=== PATIENT | male | born 1960 | race Caucasian/White ===

== ENCOUNTER 2021-04-17 18:53 | Inpatient (IN) ==
[2021-04-18] MEDS ORDERED: *HR* LORazepam 2 MG/ML VIAL IVP ONE (01:06)
[2021-04-18] MEDS ORDERED: Naloxone 0.4 MG/ML INJ IVP PRN (01:16)
[2021-04-18] MEDS ORDERED: Ondansetron 4 MG/2 ML VIAL IVP PRN (01:16)
[2021-04-18 02:11] LABS: Hematocrit 23.2 % (37.5-50.1); Hemoglobin 7.9 g/dL (12.9-16.9); Mean Corpuscular HGB Conc 34.1 g/dL (31.6-35.5); Mean Corpuscular Hemoglobin 33.6 pg (28.0-33.3); Mean Corpuscular Volume 98.7 fL (83.0-100.0); Platelet Count 110 K/mcL (140-400); Red Blood Count 2.35 M/mcL (4.19-5.50); White Blood Count 28.1 K/mcL (4.3-11.1)
[2021-04-18] MEDS ORDERED: Dexmedetomidine HCl 400 MCG/100 ML MLS IVC SCH (02:15)
[2021-04-18 02:27] LABS: Alanine Aminotransferase 19 Units/L (7-52); Albumin 2.1 g/dL (3.5-5.7); Albumin/Globulin Ratio 0.5 (1.1-2.2); Alkaline Phosphatase 103 Units/L (34-104); Aspartate Amino Transferase 74 Units/L (13-39); BUN/Creatinine Ratio 13 (6-26); Bilirubin,Total 4.9 mg/dL (0.3-1.0); Blood Urea Nitrogen 19 mg/dL (8-23); Calcium 7.7 mg/dL (8.6-10.3); Carbon Dioxide 17 mEq/L (23-29); Chloride 108 mEq/L (98-107); Globulin 4.5 g/dL (2.4-3.5); Glucose 64 mg/dL (70-105); Lipase 12 Units/L (11-82); Magnesium 1.3 mg/dL (1.6-2.6); Osmolality,Calculated 288 (280-300); Potassium 4.2 mEq/L (3.5-5.1); Sodium 139 mEq/L (136-145); Total Protein 6.6 g/dL (6.4-8.9); eGFR For African Americans > 60 (> 60); eGFR For Non-African Americans 51 (> 60)
[2021-04-18] MEDS ORDERED: D5% in Water 1,000 ML IVC PRN (02:33)
[2021-04-18] MEDS ORDERED: Dextrose Gel 15 GM/37.5 ML TUBE PO PRN ×2 (02:33)
[2021-04-18] MEDS ORDERED: *HR* Dextrose 50 % in Water (Vial) 50 ML VIAL IVP PRN (02:33)
[2021-04-18 02:34] LABS: Lymphocytes # 2.3 K/mcL (0.6-4.6); Monocytes # 0.6 K/mcL (0.0-1.3); Neutrophils # 24.2 K/mcL (1.6-8.9); Platelet Estimate Slight Decrease (Normal)
[2021-04-18] MEDS ORDERED: 0.9 % Sodium Chloride 1,000 ML IVC SCH (03:15)
[2021-04-18 03:36] LABS: INR 2.4; Prothrombin Time 27.2 Seconds (9.4-12.1)
[2021-04-18] MEDS: 0.9 % Sodium Chloride 500 ML IVC ONE ×2 (03:41→05:38)
[2021-04-18] MEDS ORDERED: *HR* LORazepam 2 MG/ML VIAL IVP PRN ×2 (03:51)
[2021-04-18] MEDS ORDERED: Lactulose 200 GM, Sodium Chloride IRRigation 700 ML RC ONE ×2 (04:02→18:00)
[2021-04-18] MEDS ORDERED: 0.9 % Sodium Chloride 500 ML ONE (05:25)
[2021-04-18] MEDS: Albumin 25% 25gram/100mL 25 GM/100 ML IV.SOLN IVPB SCH ×3 (05:40→21:39)
[2021-04-18] MEDS ORDERED: Vancomycin 1,250 MG/262.5 ML IV.SOLN IVPB SCH (06:00)
[2021-04-18 07:34] LABS: % Iron Saturation 24 % (20-55); Ethanol < 10 mg/dL (Less than 10); Iron 30 mcg/dL (65-175); Transferrin 91 mg/dL (203-362)
[2021-04-18] MEDS: Piperacillin/Tazobactam 3.375 GM in 0.9 % Sodium Chloride Mini Bag 100 ML IVPB SCH ×2 (07:34→17:24)
[2021-04-18 07:50] LABS: Ferritin 414 ng/mL (20-250)
[2021-04-18 07:55] LABS: Folate 9.8 ng/mL (3.0-16.0)
[2021-04-18] MEDS: Ipratropium/Albuterol Neb 3 ML IH SCH ×5 (08:04→23:58)
[2021-04-18] MEDS: *HR* LORazepam 2 MG/ML VIAL IVP PRN ×2 (08:38→22:15)
[2021-04-18] MEDS ORDERED: Ringers Solution, Lactated 500 ML IVC ONE ×2 (08:48→09:55)
[2021-04-18 09:05] LABS: Amorphous Sediment,Urine Few per hpf (None-Few); Bacteria,Urine Few per hpf (None-Few); Bilirubin,Urine Negative (Negative); Blood,Urine Large (Negative); Clarity,Urine Ex.Turbid (Clear); Color,Urine Orange (Yellow); Glucose,Urine (UA) 200 mg/dL (Normal); Hyaline Casts,Urine Moderate per lpf (None Seen); Ketones,Urine Negative (Negative); Leukocyte Esterase,Urine Large (Negative); Mucus,Urine Few per lpf (None-Few); Nitrite,Urine Negative (Negative); PH,Urine 5.5 pH Units (5.0-8.0); Protein,Urine 50 mg/dL (Neg-Trace); RBC,Urine TNTC per hpf (0-3); Specific Gravity,Urine 1.021 (1.010-1.025); Squamous Epithelial Cell,Urine Few per hpf (None-Few); Urobilinogen,Urine Normal (Normal); WBC,Urine 50-100 per hpf (0-3)
[2021-04-18] MEDS ORDERED: Ringers Solution, Lactated 1,000 ML IVC ONE ×3 (09:48→11:34)
[2021-04-18 09:50] LABS: Amphetamine Screen,Urine Negative ng/mL (Cutoff=1000); Barbiturate Screen,Urine Negative ng/mL (Cutoff=200); Benzodiazepines Screen,Urine Negative ng/mL (Cutoff=200); Cannabinoid Screen,Urine Negative ng/mL (Cutoff = 50); Cocaine Screen,Urine Negative ng/mL (Cutoff= 300); Opiate Screen,Urine Negative ng/mL (Cutoff=300); Phencyclidine Screen,Urine Negative ng/mL (Cutoff=25)
[2021-04-18 11:45] LABS: Adenovirus Not Detected (Not Detect); Coronavirus 229E Not Detected (Not Detect); Coronavirus HKU1 Not Detected (Not Detect); Coronavirus NL63 Not Detected (Not Detect); Coronavirus OC43 Not Detected (Not Detect)
[2021-04-18 11:46] LABS: Bordetella Pertussis Not Detected (Not Detect); Chlamydophila pneumoniae Not Detected (Not Detect); Human Metapneumovirus Not Detected (Not Detect); Human Rhinovirus/Enterovirus Not Detected (Not Detect); Influenza A Subtype 2009 H1 Not Detected (Not Detect); Influenza B Not Detected (Not Detect); Mycoplasma pneumoniae Not Detected (Not Detect); Parainfluenza Virus 1 Not Detected (Not Detect); Parainfluenza Virus 2 Not Detected (Not Detect); Parainfluenza Virus 3 Not Detected (Not Detect); Parainfluenza Virus 4 Not Detected (Not Detect); Respiratory Syncytial Virus Not Detected (Not Detect); SARS-CoV-2 Not Detected (Not Detect)
[2021-04-18] MEDS ORDERED: Haloperidol Lactate 5 MG/ML VIAL IVP ONE ×2 (14:42→17:22)
[2021-04-18] MEDS: Insulin LISPRO 300 UNITS/3 ML VIAL SUBQ SCH ×3 (15:02→23:42)
[2021-04-18 15:54] LABS: Sodium, Urine 24.9 mEq/L
[2021-04-18] MEDS ORDERED: Thiamine (B-1) 100 MG, Folic Acid 1 MG, MVI, adult with vitamin K 10 ML in 0.9 % Sodi... IVPB SCH (18:00)
[2021-04-18 18:58] LABS: RBC,Peritoneal Fluid < 2000 RBC/mcL
[2021-04-18 19:38] LABS: Appearance of Peritoneal Fl CLEAR (Clear)
[2021-04-18 19:58] LABS: Basophils,Peritoneal Fluid 0 %; Eosinophils,Peritoneal Fluid 0 %
[2021-04-19] MEDS: Piperacillin/Tazobactam 3.375 GM in 0.9 % Sodium Chloride Mini Bag 100 ML IVPB SCH ×2 (00:10→16:47)
[2021-04-19] MEDS: *HR* LORazepam 2 MG/ML VIAL IVP PRN (02:15)
[2021-04-19] MEDS: Ipratropium/Albuterol Neb 3 ML IH SCH ×6 (04:23→23:24)
[2021-04-19] MEDS ORDERED: *HR* Etomidate 20 MG/10 ML AMPUL IVP ONE (04:54)
[2021-04-19] MEDS ORDERED: *HR* Midazolam HCl 5 MG/5 ML VIAL IVP ONE (04:54)
[2021-04-19 06:00] LABS: Hemoglobin 7.3 g/dL (12.9-16.9); Mean Corpuscular Hemoglobin 32.4 pg (28.0-33.3); Red Blood Count 2.25 M/mcL (4.19-5.50); Red Cell Distribution Width 13.2 % (11.5-14.5)
[2021-04-19 06:01] LABS: Hematocrit 22.9 % (37.5-50.1); Immature Platelets 1.6 % (1.1-6.1); Mean Corpuscular HGB Conc 31.9 g/dL (31.6-35.5); Mean Corpuscular Volume 101.8 fL (83.0-100.0); Mean Platelet Volume 8.9 fL (9.4-12.4); White Blood Count 16.9 K/mcL (4.3-11.1)
[2021-04-19] MEDS: Albumin 25% 25gram/100mL 25 GM/100 ML IV.SOLN IVPB SCH ×3 (06:01→23:52)
[2021-04-19 06:07] LABS: INR 2.6
[2021-04-19] MEDS: Insulin LISPRO 300 UNITS/3 ML VIAL SUBQ SCH ×3 (06:16→18:10)
[2021-04-19 06:20] LABS: Albumin 2.6 g/dL (3.5-5.7); Albumin/Globulin Ratio 0.7 (1.1-2.2); Bilirubin,Total 4.9 mg/dL (0.3-1.0); Calcium 8.2 mg/dL (8.6-10.3); Globulin 3.6 g/dL (2.4-3.5); Magnesium 1.7 mg/dL (1.6-2.6); Potassium 3.7 mEq/L (3.5-5.1); Total Protein 6.2 g/dL (6.4-8.9)
[2021-04-19] MEDS ORDERED: Furosemide 40 MG/4 ML VIAL ONE ×2 (07:36→08:38)
[2021-04-19] MEDS ORDERED: Perflutren Lipid Microsphere 1.3 ML in 0.9 % Sodium Chloride 8.7 ML IVP PRN (07:57)
[2021-04-19] MEDS ORDERED: Lactulose 200 GM, Sodium Chloride IRRigation 700 ML RC ONE (08:35)
[2021-04-19] MEDS ORDERED: *HR* LORazepam 2 MG/ML VIAL IVP PRN ×2 (08:35)
[2021-04-19] MEDS ORDERED: Naloxone 0.4 MG/ML INJ IVP PRN (08:35)
[2021-04-19] MEDS ORDERED: D5% in Water 1,000 ML IVC PRN (08:35)
[2021-04-19] MEDS ORDERED: Dextrose Gel 15 GM/37.5 ML TUBE PO PRN ×2 (08:35)
[2021-04-19] MEDS ORDERED: Ondansetron 4 MG/2 ML VIAL IVP PRN (08:35)
[2021-04-19] MEDS ORDERED: Artificial Tears SOLN 15 ML BOTTLE BOTH EYES PRN (08:49)
[2021-04-19] MEDS: Furosemide 40 MG/4 ML VIAL IVP SCH ×2 (08:58→20:01)
[2021-04-19] MEDS ORDERED: Furosemide 40 MG/4 ML VIAL IVP SCH (09:00)
[2021-04-19] MEDS: Chlorhexidine Rinse 15 ML MOUTHWASH MM SCH ×2 (09:20→20:00)
[2021-04-19] MEDS: Pantoprazole 40 MG VIAL IVP SCH (09:20)
[2021-04-19] MEDS: Midazolam HCl 50 MG/100 ML IV.SOLN IVC SCH (09:21)
[2021-04-19 09:58] LABS: ABG Base Excess -4 mEq/L (-2 to 3); ABG HCO3 21 mEq/L (21-27); ABG Oxygen Saturation 100 % (95-98); ABG PCO2 37 mmHg (35-45); ABG PH 7.36 pH Units (7.32-7.45); ABG PO2 212 mmHg (85-104); ABG TCO2 22 mEq/L (20-26); Blood Gas Modality ASSIST CONTROL; Blood Gas VT 450 cc
[2021-04-19] MEDS: Budesonide/Formoterol 160/4.5 1 PUFF INH IH SCH ×2 (11:47→21:46)
[2021-04-19] MEDS: Artificial Tears SOLN 15 ML BOTTLE BOTH EYES SCH ×3 (14:10→20:00)
[2021-04-19 16:01] LABS: Protein/Creatinine Ratio,Urine 0.65 mg/mg (0.00-0.20)
[2021-04-19] MEDS: Thiamine (B-1) 100 MG, Folic Acid 1 MG, MVI, adult with vitamin K 10 ML in 0.9 % Sodi... IVPB SCH (20:23)
[2021-04-20] MEDS: Artificial Tears SOLN 15 ML BOTTLE BOTH EYES SCH ×6 (00:44→20:06)
[2021-04-20] MEDS: Insulin LISPRO 300 UNITS/3 ML VIAL SUBQ SCH ×4 (00:45→17:41)
[2021-04-20] MEDS: Piperacillin/Tazobactam 3.375 GM in 0.9 % Sodium Chloride Mini Bag 100 ML IVPB SCH ×3 (01:28→16:11)
[2021-04-20] MEDS: Ipratropium/Albuterol Neb 3 ML IH SCH ×6 (03:30→23:24)
[2021-04-20 04:33] LABS: ABG Base Excess -4 mEq/L (-2 to 3); ABG HCO3 22 mEq/L (21-27); ABG Oxygen Saturation 96 % (95-98); ABG PCO2 46 mmHg (35-45); ABG PH 7.29 pH Units (7.32-7.45); ABG PO2 90 mmHg (85-104); ABG TCO2 24 mEq/L (20-26); Blood Gas Modality ASSIST CONTROL; Blood Gas VT 450 cc
[2021-04-20] MEDS: Albumin 25% 25gram/100mL 25 GM/100 ML IV.SOLN IVPB SCH ×3 (05:23→21:26)
[2021-04-20 05:45] LABS: Basophils % 0.3 %; Hemoglobin 7.1 g/dL (12.9-16.9); Lymphocytes % 11.5 %; Mean Corpuscular Hemoglobin 32.3 pg (28.0-33.3); Mean Platelet Volume 9.3 fL (9.4-12.4)
[2021-04-20 05:48] LABS: Eosinophils # 0.2 K/mcL (0.0-0.6); Eosinophils % 2.6 %; Hematocrit 22.4 % (37.5-50.1); Immature Granulocytes % 0.6 % (0-4); Immature Platelets 2.2 % (1.1-6.1); Lymphocytes # 0.8 K/mcL (0.6-4.6); Mean Corpuscular HGB Conc 31.7 g/dL (31.6-35.5); Mean Corpuscular Volume 101.8 fL (83.0-100.0); Monocytes % 7.9 %; Neutrophils # 5.3 K/mcL (1.6-8.9); Red Cell Distribution Width 13.2 % (11.5-14.5); Segmented Neutrophils % 77.1 %; White Blood Count 6.9 K/mcL (4.3-11.1)
[2021-04-20 05:55] LABS: Monocytes # 0.6 K/mcL (0.0-1.3); Platelet Count 50 K/mcL (140-400)
[2021-04-20 06:00] LABS: Calcium 8.7 mg/dL (8.6-10.3); Potassium 2.8 mEq/L (3.5-5.1)
[2021-04-20] MEDS ORDERED: Potassium Chloride 40 MEQ/200 ML BAG IVPB PRN (06:16)
[2021-04-20] MEDS ORDERED: Potassium Chloride Elixir 20 MEQ/15 ML UDC GTUBE ONE ×3 (07:32→16:03)
[2021-04-20] MEDS: Chlorhexidine Rinse 15 ML MOUTHWASH MM SCH ×2 (07:34→20:18)
[2021-04-20] MEDS: Pantoprazole 40 MG VIAL IVP SCH (07:34)
[2021-04-20] MEDS: Budesonide/Formoterol 160/4.5 1 PUFF INH IH SCH ×2 (07:59→19:30)
[2021-04-20] MEDS: Furosemide 40 MG/4 ML VIAL IVP SCH ×2 (10:04→20:18)
[2021-04-20] MEDS: Midazolam HCl 50 MG/100 ML IV.SOLN IVC SCH (10:07)
[2021-04-20] MEDS: Lactulose Oral Soln 20 GM/30 ML UDC GTUBE SCH ×2 (10:07→21:20)
[2021-04-20 15:21] LABS: Basophils % 0.3 %; Eosinophils % 2.9 %
[2021-04-20 15:23] LABS: Eosinophils # 0.2 K/mcL (0.0-0.6); Hematocrit 20.3 % (37.5-50.1); Hemoglobin 6.8 g/dL (12.9-16.9); Immature Granulocytes % 0.3 % (0-4); Lymphocytes # 0.7 K/mcL (0.6-4.6); Lymphocytes % 10.3 %; Mean Corpuscular HGB Conc 33.5 g/dL (31.6-35.5); Mean Corpuscular Volume 98.5 fL (83.0-100.0); Mean Platelet Volume 9.9 fL (9.4-12.4); Monocytes # 0.3 K/mcL (0.0-1.3); Monocytes % 4.7 %; Neutrophils # 5.5 K/mcL (1.6-8.9); Red Blood Count 2.06 M/mcL (4.19-5.50); Segmented Neutrophils % 81.5 %; White Blood Count 6.8 K/mcL (4.3-11.1)
[2021-04-20 15:32] LABS: Platelet Count 73 K/mcL (140-400)
[2021-04-20 15:40] LABS: RBC,Peritoneal Fluid < 2000 RBC/mcL
[2021-04-20 15:50] LABS: Calcium 9.1 mg/dL (8.6-10.3); Potassium 3.4 mEq/L (3.5-5.1)
[2021-04-20 16:25] LABS: Reactive Lymphocytes Present (Not Present); Smudge Cells Present (Not Present)
[2021-04-20] MEDS ORDERED: 0.9 % Sodium Chloride 250 ML ONE (16:59)
[2021-04-20 17:02] LABS: Appearance of Peritoneal Fl CLEAR (Clear)
[2021-04-20 17:04] LABS: Basophils,Peritoneal Fluid 0 %; Eosinophils,Peritoneal Fluid 0 %
[2021-04-20] MEDS: Thiamine (B-1) 100 MG, Folic Acid 1 MG, MVI, adult with vitamin K 10 ML in 0.9 % Sodi... IVPB SCH (17:39)
[2021-04-20] MEDS: *HR* Dextrose 50 % in Water (Vial) 50 ML VIAL IVP PRN (17:47)
[2021-04-20] MEDS: Thiamine (B-1) 100 MG TABLET GTUBE SCH (20:19)
[2021-04-21] MEDS: Piperacillin/Tazobactam 3.375 GM in 0.9 % Sodium Chloride Mini Bag 100 ML IVPB SCH ×4 (00:08→23:16)
[2021-04-21] MEDS: Artificial Tears SOLN 15 ML BOTTLE BOTH EYES SCH ×7 (00:08→23:16)
[2021-04-21] MEDS: *HR* Dextrose 50 % in Water (Vial) 50 ML VIAL IVP PRN (00:10)
[2021-04-21] MEDS: Insulin LISPRO 300 UNITS/3 ML VIAL SUBQ SCH ×5 (00:13→23:29)
[2021-04-21] MEDS: Midazolam HCl 50 MG/100 ML IV.SOLN IVC SCH (00:25)
[2021-04-21] MEDS: Ipratropium/Albuterol Neb 3 ML IH SCH ×6 (03:39→23:31)
[2021-04-21 04:32] LABS: ABG Base Excess -1 mEq/L (-2 to 3); ABG HCO3 23 mEq/L (21-27); ABG Oxygen Saturation 95 % (95-98); ABG PCO2 35 mmHg (35-45); ABG PH 7.43 pH Units (7.32-7.45); ABG PO2 74 mmHg (85-104); ABG TCO2 24 mEq/L (20-26); Blood Gas Modality ASSIST CONTROL; Blood Gas VT 450 cc
[2021-04-21] MEDS: Albumin 25% 25gram/100mL 25 GM/100 ML IV.SOLN IVPB SCH ×3 (05:27→22:16)
[2021-04-21 06:42] LABS: Calcium 9.4 mg/dL (8.6-10.3); Potassium 3.4 mEq/L (3.5-5.1)
[2021-04-21] MEDS: Budesonide/Formoterol 160/4.5 1 PUFF INH IH SCH ×2 (07:18→19:58)
[2021-04-21] MEDS: Thiamine (B-1) 100 MG TABLET GTUBE SCH ×3 (08:32→19:45)
[2021-04-21] MEDS: Lactulose Oral Soln 20 GM/30 ML UDC GTUBE SCH ×2 (08:32→19:45)
[2021-04-21] MEDS: Pantoprazole 40 MG VIAL IVP SCH (08:32)
[2021-04-21] MEDS: Chlorhexidine Rinse 15 ML MOUTHWASH MM SCH ×2 (08:32→19:45)
[2021-04-21] MEDS: Furosemide 40 MG/4 ML VIAL IVP SCH ×2 (08:34→19:46)
[2021-04-21] MEDS ORDERED: Potassium Chloride Elixir 20 MEQ/15 ML UDC GTUBE ONE (11:22)
[2021-04-21 16:58] LABS: Basophils % 0.3 %; Immature Granulocytes % 0.5 % (0-4); Monocytes % 8.3 %
[2021-04-21 17:00] LABS: Eosinophils # 0.2 K/mcL (0.0-0.6); Eosinophils % 2.8 %; Hematocrit 23.3 % (37.5-50.1); Hemoglobin 7.8 g/dL (12.9-16.9); Immature Platelets 1.4 % (1.1-6.1); Lymphocytes # 1.1 K/mcL (0.6-4.6); Lymphocytes % 14.1 %; Mean Corpuscular HGB Conc 33.5 g/dL (31.6-35.5); Mean Corpuscular Hemoglobin 31.6 pg (28.0-33.3); Mean Corpuscular Volume 94.3 fL (83.0-100.0); Mean Platelet Volume 8.5 fL (9.4-12.4); Monocytes # 0.7 K/mcL (0.0-1.3); Neutrophils # 5.8 K/mcL (1.6-8.9); Red Blood Count 2.47 M/mcL (4.19-5.50); Red Cell Distribution Width 15.3 % (11.5-14.5); White Blood Count 7.8 K/mcL (4.3-11.1)
[2021-04-21 17:01] LABS: Platelet Count 67 K/mcL (140-400)
[2021-04-21 17:05] LABS: INR 2.3
[2021-04-21] MEDS ORDERED: Bisacodyl 10 MG RECTAL SUPPOSITORY RC PRN (17:55)
[2021-04-22] MEDS: Artificial Tears SOLN 15 ML BOTTLE BOTH EYES SCH ×6 (02:55→23:59)
[2021-04-22] MEDS: Ipratropium/Albuterol Neb 3 ML IH SCH ×5 (03:40→20:05)
[2021-04-22 03:56] LABS: Basophils % 0.4 %; Eosinophils # 0.3 K/mcL (0.0-0.6); Eosinophils % 3.7 %; Hematocrit 23.3 % (37.5-50.1); Hemoglobin 7.9 g/dL (12.9-16.9); Immature Granulocytes % 0.4 % (0-4); Immature Platelets 1.2 % (1.1-6.1); Lymphocytes # 1.2 K/mcL (0.6-4.6); Lymphocytes % 15.8 %; Mean Corpuscular HGB Conc 33.9 g/dL (31.6-35.5); Mean Corpuscular Volume 94.3 fL (83.0-100.0); Mean Platelet Volume 8.8 fL (9.4-12.4); Monocytes # 0.8 K/mcL (0.0-1.3); Monocytes % 9.6 %; Neutrophils # 5.5 K/mcL (1.6-8.9); Red Blood Count 2.47 M/mcL (4.19-5.50); Red Cell Distribution Width 15.1 % (11.5-14.5); Segmented Neutrophils % 70.1 %; White Blood Count 7.8 K/mcL (4.3-11.1)
[2021-04-22 03:57] LABS: Platelet Count 71 K/mcL (140-400)
[2021-04-22 04:26] LABS: Calcium 9.6 mg/dL (8.6-10.3); Magnesium 1.4 mg/dL (1.6-2.6); Phosphorous 3.5 mg/dL (2.7-4.5); Potassium 3.4 mEq/L (3.5-5.1)
[2021-04-22 04:46] LABS: ABG Base Excess 2 mEq/L (-2 to 3); ABG HCO3 26 mEq/L (21-27); ABG Oxygen Saturation 94 % (95-98); ABG PCO2 38 mmHg (35-45); ABG PH 7.44 pH Units (7.32-7.45); ABG PO2 67 mmHg (85-104); ABG TCO2 27 mEq/L (20-26); Blood Gas Modality ASSIST CONTROL; Blood Gas VT 400 cc
[2021-04-22] MEDS: Albumin 25% 25gram/100mL 25 GM/100 ML IV.SOLN IVPB SCH ×3 (05:10→21:52)
[2021-04-22] MEDS: Insulin LISPRO 300 UNITS/3 ML VIAL SUBQ SCH ×4 (05:20→23:59)
[2021-04-22] MEDS: Budesonide/Formoterol 160/4.5 1 PUFF INH IH SCH ×2 (07:48→20:06)
[2021-04-22] MEDS: Thiamine (B-1) 100 MG TABLET GTUBE SCH ×3 (07:51→21:52)
[2021-04-22] MEDS: Piperacillin/Tazobactam 3.375 GM in 0.9 % Sodium Chloride Mini Bag 100 ML IVPB SCH ×2 (07:51→15:26)
[2021-04-22] MEDS: Pantoprazole 40 MG VIAL IVP SCH (07:52)
[2021-04-22] MEDS: Lactulose Oral Soln 20 GM/30 ML UDC GTUBE SCH ×2 (07:52→21:52)
[2021-04-22] MEDS: Chlorhexidine Rinse 15 ML MOUTHWASH MM SCH ×2 (07:52→21:52)
[2021-04-22] MEDS: Furosemide 40 MG/4 ML VIAL IVP SCH (07:52)
[2021-04-22] MEDS: Midazolam HCl 50 MG/100 ML IV.SOLN IVC SCH (07:53)
[2021-04-22 14:53] LABS: Magnesium 1.7 mg/dL (1.6-2.6); Potassium 3.5 mEq/L (3.5-5.1)
[2021-04-22] MEDS ORDERED: Potassium Chloride Elixir 20 MEQ/15 ML UDC PO ONE (17:00)
[2021-04-22 22:00] LABS: Magnesium 2.1 mg/dL (1.6-2.6); Potassium 3.5 mEq/L (3.5-5.1)
[2021-04-23] MEDS: Ipratropium/Albuterol Neb 3 ML IH SCH ×7 (00:29→23:39)
[2021-04-23] MEDS: Artificial Tears SOLN 15 ML BOTTLE BOTH EYES SCH ×3 (03:27→11:57)
[2021-04-23 03:51] LABS: Basophils % 0.3 %; Hematocrit 22.9 % (37.5-50.1); Immature Granulocytes % 0.6 % (0-4)
[2021-04-23 03:52] LABS: ABG Base Excess 3 mEq/L (-2 to 3); ABG HCO3 26 mEq/L (21-27); ABG Oxygen Saturation 93 % (95-98); ABG PCO2 36 mmHg (35-45); ABG PH 7.47 pH Units (7.32-7.45); ABG PO2 62 mmHg (85-104); ABG TCO2 28 mEq/L (20-26); Blood Gas Modality CPAP/PS; Blood Gas Pressure Support 12 cm H2O
[2021-04-23 03:53] LABS: Eosinophils # 0.3 K/mcL (0.0-0.6); Eosinophils % 3.3 %; Hemoglobin 7.6 g/dL (12.9-16.9); Immature Platelets 1.7 % (1.1-6.1); Lymphocytes # 1.3 K/mcL (0.6-4.6); Lymphocytes % 14.7 %; Mean Corpuscular HGB Conc 33.2 g/dL (31.6-35.5); Mean Corpuscular Hemoglobin 31.7 pg (28.0-33.3); Mean Corpuscular Volume 95.4 fL (83.0-100.0); Mean Platelet Volume 9.5 fL (9.4-12.4); Monocytes # 0.8 K/mcL (0.0-1.3); Monocytes % 9.5 %; Neutrophils # 6.3 K/mcL (1.6-8.9); Red Cell Distribution Width 14.8 % (11.5-14.5); Segmented Neutrophils % 71.6 %; White Blood Count 8.8 K/mcL (4.3-11.1)
[2021-04-23 04:02] LABS: Calcium 10.3 mg/dL (8.6-10.3); Magnesium 1.9 mg/dL (1.6-2.6); Phosphorous 2.9 mg/dL (2.7-4.5); Potassium 3.5 mEq/L (3.5-5.1)
[2021-04-23 04:13] LABS: Platelet Count 69 K/mcL (140-400)
[2021-04-23] MEDS: Insulin LISPRO 300 UNITS/3 ML VIAL SUBQ SCH ×3 (06:06→18:52)
[2021-04-23] MEDS: Budesonide/Formoterol 160/4.5 1 PUFF INH IH SCH ×2 (07:06→19:59)
[2021-04-23] MEDS ORDERED: Potassium Chloride 40 MEQ, Lidocaine 1% 2 ML in 0.9 % Sodium Chloride 500 ML IVPB ONE (08:39)
[2021-04-23] MEDS: Pantoprazole 40 MG VIAL IVP SCH (09:57)
[2021-04-23] MEDS: Chlorhexidine Rinse 15 ML MOUTHWASH MM SCH (09:57)
[2021-04-23] MEDS: Piperacillin/Tazobactam 3.375 GM in 0.9 % Sodium Chloride Mini Bag 100 ML IVPB SCH ×3 (09:57→17:05)
[2021-04-23] MEDS ORDERED: Potassium Chloride 20 MEQ, Lidocaine 1% 2 ML in 0.9 % Sodium Chloride 250 ML IVPB ONE (13:00)
[2021-04-23 13:07] LABS: Magnesium 1.9 mg/dL (1.6-2.6); Phosphorous 3.1 mg/dL (2.7-4.5); Potassium 3.7 mEq/L (3.5-5.1)
[2021-04-23] MEDS: Thiamine (B-1) 100 MG TABLET GTUBE SCH ×2 (17:03→22:54)
[2021-04-23] MEDS: Lactulose Oral Soln 20 GM/30 ML UDC GTUBE SCH ×2 (17:03→22:54)
[2021-04-23] MEDS: *HR* LORazepam 2 MG/ML VIAL IVP PRN (17:03)
[2021-04-24] MEDS: *HR* LORazepam 2 MG/ML VIAL IVP PRN (00:24)
[2021-04-24] MEDS: Piperacillin/Tazobactam 3.375 GM in 0.9 % Sodium Chloride Mini Bag 100 ML IVPB SCH ×2 (00:25→09:42)
[2021-04-24] MEDS: Insulin LISPRO 300 UNITS/3 ML VIAL SUBQ SCH ×5 (00:29→23:26)
[2021-04-24] MEDS: Ipratropium/Albuterol Neb 3 ML IH SCH ×6 (03:19→23:49)
[2021-04-24 05:12] LABS: Basophils % 0.4 %; Hemoglobin 7.1 g/dL (12.9-16.9); Mean Corpuscular Hemoglobin 31.7 pg (28.0-33.3); Monocytes % 9.5 %; Red Blood Count 2.24 M/mcL (4.19-5.50); Red Cell Distribution Width 15.2 % (11.5-14.5)
[2021-04-24 05:14] LABS: Eosinophils # 0.3 K/mcL (0.0-0.6); Eosinophils % 4.5 %; Hematocrit 22.4 % (37.5-50.1); Immature Granulocytes % 0.7 % (0-4); Immature Platelets 1.5 % (1.1-6.1); Lymphocytes # 1.1 K/mcL (0.6-4.6); Mean Corpuscular HGB Conc 31.7 g/dL (31.6-35.5); Mean Platelet Volume 9.2 fL (9.4-12.4); Monocytes # 0.7 K/mcL (0.0-1.3); Segmented Neutrophils % 69.9 %; White Blood Count 7.2 K/mcL (4.3-11.1)
[2021-04-24 05:19] LABS: Platelet Count 62 K/mcL (140-400)
[2021-04-24 05:24] LABS: Calcium 9.7 mg/dL (8.6-10.3); Magnesium 1.8 mg/dL (1.6-2.6); Phosphorous 3.7 mg/dL (2.7-4.5); Potassium 3.5 mEq/L (3.5-5.1)
[2021-04-24] MEDS: Budesonide/Formoterol 160/4.5 1 PUFF INH IH SCH ×2 (07:32→19:54)
[2021-04-24] MEDS ORDERED: D5% in Water 1,000 ML IVC SCH (07:45)
[2021-04-24] MEDS ORDERED: Potassium Chloride 40 MEQ, Lidocaine 1% 2 ML in 0.9 % Sodium Chloride 500 ML IVPB ONE (10:28)
[2021-04-24] MEDS: Lactulose Oral Soln 20 GM/30 ML UDC GTUBE SCH ×2 (11:39→19:23)
[2021-04-24] MEDS: Thiamine (B-1) 100 MG TABLET GTUBE SCH ×3 (11:39→19:23)
[2021-04-24 14:46] LABS: VBG Ionized Calcium 1.27 mmol/L (1.15-1.35)
[2021-04-24 15:02] LABS: Calcium 9.7 mg/dL (8.6-10.3); Potassium 3.6 mEq/L (3.5-5.1)
[2021-04-25 03:12] LABS: Basophils % 0.3 %; Red Cell Distribution Width 15.4 % (11.5-14.5)
[2021-04-25 03:14] LABS: Eosinophils # 0.3 K/mcL (0.0-0.6); Eosinophils % 4.2 %; Hematocrit 22.9 % (37.5-50.1); Hemoglobin 7.3 g/dL (12.9-16.9); Immature Granulocytes % 0.8 % (0-4); Immature Platelets 1.8 % (1.1-6.1); Lymphocytes # 1.4 K/mcL (0.6-4.6); Lymphocytes % 18.7 %; Mean Corpuscular HGB Conc 31.9 g/dL (31.6-35.5); Mean Corpuscular Hemoglobin 31.6 pg (28.0-33.3); Mean Corpuscular Volume 99.1 fL (83.0-100.0); Mean Platelet Volume 9.4 fL (9.4-12.4); Monocytes # 0.7 K/mcL (0.0-1.3); Neutrophils # 4.8 K/mcL (1.6-8.9); Red Blood Count 2.31 M/mcL (4.19-5.50); White Blood Count 7.3 K/mcL (4.3-11.1)
[2021-04-25 03:21] LABS: Platelet Count 68 K/mcL (140-400)
[2021-04-25 03:28] LABS: Calcium 10.1 mg/dL (8.6-10.3); Magnesium 1.8 mg/dL (1.6-2.6); Phosphorous 3.1 mg/dL (2.7-4.5); Potassium 4.2 mEq/L (3.5-5.1)
[2021-04-25] MEDS: Ipratropium/Albuterol Neb 3 ML IH SCH ×6 (03:59→23:34)
[2021-04-25] MEDS: Insulin LISPRO 300 UNITS/3 ML VIAL SUBQ SCH ×2 (05:32→13:10)
[2021-04-25] MEDS ORDERED: D5% in Water 1,000 ML IVC SCH (07:30)
[2021-04-25] MEDS: Budesonide/Formoterol 160/4.5 1 PUFF INH IH SCH ×2 (07:33→19:55)
[2021-04-25] MEDS: Lactulose Oral Soln 20 GM/30 ML UDC GTUBE SCH ×2 (08:34→20:58)
[2021-04-25] MEDS: Thiamine (B-1) 100 MG TABLET GTUBE SCH ×3 (08:34→20:59)
[2021-04-25] MEDS ORDERED: D5% in Water 1,000 ML IVC PRN (13:59)
[2021-04-25] MEDS ORDERED: *HR* Dextrose 50 % in Water (Vial) 50 ML VIAL IVP PRN (13:59)
[2021-04-25] MEDS ORDERED: Dextrose Gel 15 GM/37.5 ML TUBE PO PRN ×2 (13:59)
[2021-04-25] MEDS ORDERED: Bisacodyl 10 MG RECTAL SUPPOSITORY RC PRN (13:59)
[2021-04-25] MEDS ORDERED: Ondansetron 4 MG/2 ML VIAL IVP PRN (13:59)
[2021-04-25] MEDS ORDERED: *HR* LORazepam 2 MG/ML VIAL IVP PRN ×2 (13:59)
[2021-04-25] MEDS ORDERED: Naloxone 0.4 MG/ML INJ IVP PRN (13:59)
[2021-04-25] MEDS: D5% in Water 1,000 ML IVC SCH (14:24)
[2021-04-25 15:30] LABS: Calcium 10.3 mg/dL (8.6-10.3); Potassium 3.5 mEq/L (3.5-5.1)
[2021-04-25] MEDS: Midazolam HCl 50 MG/100 ML IV.SOLN IVC SCH (17:46)
[2021-04-25] MEDS ORDERED: Insulin LISPRO 300 UNITS/3 ML VIAL SUBQ SCH (18:00)
[2021-04-25 19:02] LABS: Calcium 10.1 mg/dL (8.6-10.3); Potassium 3.3 mEq/L (3.5-5.1)
[2021-04-25] MEDS: *HR* LORazepam 2 MG/ML VIAL IVP PRN (20:59)
[2021-04-26 00:31] LABS: Calcium 9.9 mg/dL (8.6-10.3); Potassium 3.1 mEq/L (3.5-5.1)
[2021-04-26] MEDS: D5% in Water 1,000 ML IVC SCH ×2 (03:13→18:02)
[2021-04-26 03:27] LABS: Basophils % 0.4 %; Eosinophils # 0.3 K/mcL (0.0-0.6); Eosinophils % 4.3 %; Hematocrit 22.8 % (37.5-50.1); Hemoglobin 7.5 g/dL (12.9-16.9); Immature Granulocytes % 0.6 % (0-4); Lymphocytes # 1.3 K/mcL (0.6-4.6); Lymphocytes % 17.8 %; Mean Corpuscular HGB Conc 32.9 g/dL (31.6-35.5); Mean Corpuscular Hemoglobin 32.9 pg (28.0-33.3); Mean Platelet Volume 8.9 fL (9.4-12.4); Monocytes # 0.6 K/mcL (0.0-1.3); Monocytes % 8.6 %; Neutrophils # 4.9 K/mcL (1.6-8.9); Red Blood Count 2.28 M/mcL (4.19-5.50); Segmented Neutrophils % 68.3 %; White Blood Count 7.2 K/mcL (4.3-11.1)
[2021-04-26 03:28] LABS: Platelet Count 53 K/mcL (140-400)
[2021-04-26 03:31] LABS: VBG Ionized Calcium 1.33 mmol/L (1.15-1.35)
[2021-04-26] MEDS: Ipratropium/Albuterol Neb 3 ML IH SCH ×6 (03:44→23:29)
[2021-04-26 03:49] LABS: Magnesium 1.8 mg/dL (1.6-2.6); Phosphorous 2.9 mg/dL (2.7-4.5); Potassium 3.2 mEq/L (3.5-5.1)
[2021-04-26] MEDS: *HR* LORazepam 2 MG/ML VIAL IVP PRN (04:46)
[2021-04-26] MEDS: Budesonide/Formoterol 160/4.5 1 PUFF INH IH SCH ×2 (07:35→20:06)
[2021-04-26] MEDS: Lactulose Oral Soln 20 GM/30 ML UDC GTUBE SCH ×3 (09:15→22:32)
[2021-04-26] MEDS: Thiamine (B-1) 100 MG TABLET GTUBE SCH ×4 (09:15→22:32)
[2021-04-26 17:11] LABS: INR 2.7; Prothrombin Time 30.5 Seconds (9.4-12.1)
[2021-04-26 17:14] LABS: Calcium 9.8 mg/dL (8.6-10.3); Potassium 3.4 mEq/L (3.5-5.1)
[2021-04-26 17:15] LABS: Albumin 3.2 g/dL (3.5-5.7); Bilirubin,Indirect 3.9 mg/dL (0.0-1.0); Bilirubin,Total 8.9 mg/dL (0.3-1.0); Globulin 3.3 g/dL (2.4-3.5); Total Protein 6.5 g/dL (6.4-8.9)
[2021-04-26] MEDS: Piperacillin/Tazobactam 3.375 GM in 0.9 % Sodium Chloride Mini Bag 100 ML IVPB SCH (20:10)
[2021-04-27] MEDS: Piperacillin/Tazobactam 3.375 GM in 0.9 % Sodium Chloride Mini Bag 100 ML IVPB SCH ×3 (01:02→17:58)
[2021-04-27 01:10] LABS: Basophils % 0.2 %
[2021-04-27 01:12] LABS: Eosinophils # 0.3 K/mcL (0.0-0.6); Eosinophils % 3.1 %; Hematocrit 23.4 % (37.5-50.1); Hemoglobin 7.3 g/dL (12.9-16.9); Immature Granulocytes % 0.6 % (0-4); Immature Platelets 1.9 % (1.1-6.1); Lymphocytes # 1.5 K/mcL (0.6-4.6); Mean Corpuscular HGB Conc 31.2 g/dL (31.6-35.5); Mean Corpuscular Hemoglobin 31.5 pg (28.0-33.3); Mean Corpuscular Volume 100.9 fL (83.0-100.0); Mean Platelet Volume 9.7 fL (9.4-12.4); Monocytes % 6.2 %; Neutrophils # 7.9 K/mcL (1.6-8.9); Red Blood Count 2.32 M/mcL (4.19-5.50); Red Cell Distribution Width 16.3 % (11.5-14.5); Segmented Neutrophils % 75.9 %; White Blood Count 10.4 K/mcL (4.3-11.1)
[2021-04-27 01:14] LABS: Monocytes # 0.6 K/mcL (0.0-1.3); Platelet Count 76 K/mcL (140-400)
[2021-04-27 01:52] LABS: Calcium 9.6 mg/dL (8.6-10.3); Magnesium 1.5 mg/dL (1.6-2.6); Phosphorous 1.9 mg/dL (2.7-4.5); Potassium 3.3 mEq/L (3.5-5.1)
[2021-04-27] MEDS: Ipratropium/Albuterol Neb 3 ML IH SCH ×6 (03:30→23:27)
[2021-04-27] MEDS: D5% in Water 1,000 ML IVC SCH (03:57)
[2021-04-27 04:43] LABS: Calcium 9.6 mg/dL (8.6-10.3); Potassium 3.2 mEq/L (3.5-5.1)
[2021-04-27 05:16] LABS: Bacteria,Urine Few per hpf (None-Few); Bilirubin,Urine Negative (Negative); Blood,Urine Large (Negative); Budding Yeast,Urine Few per hpf (None Seen); Clarity,Urine Turbid (Clear); Color,Urine Yellow (Yellow); Glucose,Urine (UA) Normal (Normal); Ketones,Urine Negative (Negative); Leukocyte Esterase,Urine Trace (Negative); Mucus,Urine Few per lpf (None-Few); Nitrite,Urine Negative (Negative); Protein,Urine 30 mg/dL (Neg-Trace); RBC,Urine 30-50 per hpf (0-3); Specific Gravity,Urine 1.021 (1.010-1.025); Squamous Epithelial Cell,Urine Few per hpf (None-Few); Urobilinogen,Urine Normal (Normal)
[2021-04-27] MEDS: Budesonide/Formoterol 160/4.5 1 PUFF INH IH SCH ×2 (07:11→20:44)
[2021-04-27] MEDS ORDERED: D5% in Water 1,000 ML IVC SCH (07:17)
[2021-04-27] MEDS: Thiamine (B-1) 100 MG TABLET GTUBE SCH ×3 (09:23→19:56)
[2021-04-27] MEDS: Folic Acid 1 MG TABLET PO SCH (09:24)
[2021-04-27] MEDS: Lactulose Oral Soln 20 GM/30 ML UDC GTUBE SCH ×2 (09:24→19:56)
[2021-04-27] MEDS: *HR* LORazepam 2 MG/ML VIAL IVP PRN (09:47)
[2021-04-27 10:05] LABS: INR 2.8; Prothrombin Time 31.8 Seconds (9.4-12.1)
[2021-04-27 10:20] LABS: Albumin 3.1 g/dL (3.5-5.7); Albumin/Globulin Ratio 0.9 (1.1-2.2); Bilirubin,Direct 5.4 mg/dL (0.0-0.2); Bilirubin,Indirect 3.9 mg/dL (0.0-1.0); Bilirubin,Total 9.3 mg/dL (0.3-1.0); Globulin 3.3 g/dL (2.4-3.5); Total Protein 6.4 g/dL (6.4-8.9)
[2021-04-27] MEDS: MethylPREDNISolone 40 MG/ML VIAL IVP SCH (23:23)
[2021-04-28] MEDS: Piperacillin/Tazobactam 3.375 GM in 0.9 % Sodium Chloride Mini Bag 100 ML IVPB SCH ×3 (02:52→17:36)
[2021-04-28 03:09] LABS: Hematocrit 23.8 % (37.5-50.1); Hemoglobin 7.5 g/dL (12.9-16.9)
[2021-04-28 03:27] LABS: Albumin/Globulin Ratio 0.8 (1.1-2.2); Bilirubin,Total 11.1 mg/dL (0.3-1.0); Calcium 9.8 mg/dL (8.6-10.3); Globulin 3.6 g/dL (2.4-3.5); Magnesium 1.7 mg/dL (1.6-2.6); Phosphorous 2.3 mg/dL (2.7-4.5); Potassium 3.4 mEq/L (3.5-5.1); Total Protein 6.6 g/dL (6.4-8.9)
[2021-04-28] MEDS: Ipratropium/Albuterol Neb 3 ML IH SCH ×3 (03:52→10:33)
[2021-04-28] MEDS: Budesonide/Formoterol 160/4.5 1 PUFF INH IH SCH ×2 (07:36→21:47)
[2021-04-28] MEDS ORDERED: Lactulose 200 GM, Sodium Chloride IRRigation 700 ML RC ONE (09:52)
[2021-04-28] MEDS: MethylPREDNISolone 40 MG/ML VIAL IVP SCH ×3 (10:16→22:19)
[2021-04-28] MEDS: Pantoprazole 40 MG VIAL IVP SCH (10:16)
[2021-04-28] MEDS ORDERED: Ipratropium/Albuterol Neb 3 ML IH PRN (10:34)
[2021-04-28] MEDS ORDERED: Thiamine (B-1) 100 MG, Folic Acid 1 MG, MVI, adult with vitamin K 10 ML in 0.9 % Sodi... IVPB ONE (11:00)
[2021-04-28 11:08] LABS: INR 2.8; Prothrombin Time 31.2 Seconds (9.4-12.1)
[2021-04-28] MEDS: Lactulose Oral Soln 20 GM/30 ML UDC GTUBE SCH (18:39)
[2021-04-28] MEDS: Folic Acid 1 MG TABLET PO SCH (18:39)
[2021-04-28] MEDS: Thiamine (B-1) 100 MG TABLET GTUBE SCH (18:39)
[2021-04-29] MEDS ORDERED: Haloperidol Lactate 5 MG/ML VIAL IVP ONE ×2 (02:52→03:29)
[2021-04-29] MEDS: Piperacillin/Tazobactam 3.375 GM in 0.9 % Sodium Chloride Mini Bag 100 ML IVPB SCH ×3 (03:01→18:41)
[2021-04-29 04:43] LABS: Basophils % 0.1 %; Mean Platelet Volume 10.1 fL (9.4-12.4); Red Cell Distribution Width 17.1 % (11.5-14.5)
[2021-04-29 04:45] LABS: Hematocrit 23.8 % (37.5-50.1); Hemoglobin 7.7 g/dL (12.9-16.9); Immature Granulocytes % 1.1 % (0-4); Lymphocytes # 1.1 K/mcL (0.6-4.6); Lymphocytes % 8.1 %; Mean Corpuscular HGB Conc 32.4 g/dL (31.6-35.5); Mean Corpuscular Hemoglobin 32.5 pg (28.0-33.3); Mean Corpuscular Volume 100.4 fL (83.0-100.0); Monocytes # 0.3 K/mcL (0.0-1.3); Monocytes % 2.5 %; Neutrophils # 11.8 K/mcL (1.6-8.9); Platelet Count 100 K/mcL (140-400); Red Blood Count 2.37 M/mcL (4.19-5.50); Segmented Neutrophils % 88.2 %; White Blood Count 13.4 K/mcL (4.3-11.1)
[2021-04-29 04:55] LABS: INR 3.1; Prothrombin Time 35.2 Seconds (9.4-12.1)
[2021-04-29 05:02] LABS: Albumin 3.1 g/dL (3.5-5.7); Albumin/Globulin Ratio 0.9 (1.1-2.2); Bilirubin,Total 11.5 mg/dL (0.3-1.0); Globulin 3.6 g/dL (2.4-3.5); Magnesium 1.8 mg/dL (1.6-2.6); Phosphorous 3.5 mg/dL (2.7-4.5); Potassium 2.9 mEq/L (3.5-5.1); Total Protein 6.7 g/dL (6.4-8.9)
[2021-04-29] MEDS ORDERED: Potassium Chloride 40 MEQ, Lidocaine 1% 2 ML in 0.9 % Sodium Chloride 500 ML IVPB ONE (08:17)
[2021-04-29] MEDS: D5% in Water 1,000 ML IVC SCH ×2 (09:04→22:35)
[2021-04-29] MEDS: Pantoprazole 40 MG VIAL IVP SCH (09:10)
[2021-04-29] MEDS: MethylPREDNISolone 40 MG/ML VIAL IVP SCH ×2 (09:10→15:59)
[2021-04-29] MEDS ORDERED: E-Z-PAQUE (BARIUM SULF) SUSP 1 BOTTLE PO ONE (10:03)
[2021-04-29] MEDS ORDERED: E-Z-HD (BARIUM SULF) SUSPENSION PO ONE (10:03)
[2021-04-29] MEDS: Budesonide/Formoterol 160/4.5 1 PUFF INH IH SCH ×2 (10:54→22:37)
[2021-04-29] MEDS ORDERED: Haloperidol Lactate 5 MG/ML VIAL IM ONE (20:23)
[2021-04-29] MEDS: Lactulose Oral Soln 20 GM/30 ML UDC PO SCH (20:39)
[2021-04-30] MEDS: Piperacillin/Tazobactam 3.375 GM in 0.9 % Sodium Chloride Mini Bag 100 ML IVPB SCH ×3 (03:09→21:06)
[2021-04-30] MEDS: MethylPREDNISolone 40 MG/ML VIAL IVP SCH ×3 (08:32→16:00)
[2021-04-30] MEDS: Pantoprazole 40 MG VIAL IVP SCH (08:33)
[2021-04-30] MEDS: Lactulose Oral Soln 20 GM/30 ML UDC PO SCH ×2 (08:41→21:07)
[2021-04-30 09:16] LABS: Immature Granulocytes % 0.5 % (0-4)
[2021-04-30 09:18] LABS: Hematocrit 22.5 % (37.5-50.1); Hemoglobin 7.1 g/dL (12.9-16.9); Immature Platelets 2.3 % (1.1-6.1); Lymphocytes # 0.9 K/mcL (0.6-4.6); Lymphocytes % 8.4 %; Mean Corpuscular HGB Conc 31.6 g/dL (31.6-35.5); Mean Corpuscular Hemoglobin 31.8 pg (28.0-33.3); Mean Corpuscular Volume 100.9 fL (83.0-100.0); Mean Platelet Volume 10.3 fL (9.4-12.4); Monocytes # 0.3 K/mcL (0.0-1.3); Monocytes % 2.4 %; Platelet Count 102 K/mcL (140-400); Red Blood Count 2.23 M/mcL (4.19-5.50); Red Cell Distribution Width 17.8 % (11.5-14.5); Segmented Neutrophils % 88.7 %; White Blood Count 11.1 K/mcL (4.3-11.1)
[2021-04-30 09:30] LABS: INR 2.6; Prothrombin Time 29.8 Seconds (9.4-12.1)
[2021-04-30 09:32] LABS: Neutrophils # 9.9 K/mcL (1.6-8.9)
[2021-04-30 09:41] LABS: Potassium 3.3 mEq/L (3.5-5.1)
[2021-04-30 09:42] LABS: Albumin/Globulin Ratio 0.9 (1.1-2.2); Calcium 9.6 mg/dL (8.6-10.3); Globulin 3.4 g/dL (2.4-3.5); Magnesium 1.8 mg/dL (1.6-2.6); Phosphorous 2.9 mg/dL (2.7-4.5); Total Protein 6.4 g/dL (6.4-8.9)
[2021-04-30] MEDS: Budesonide/Formoterol 160/4.5 1 PUFF INH IH SCH (10:03)
[2021-04-30] MEDS: D5% in Water 1,000 ML IVC SCH (12:19)
[2021-04-30] MEDS ORDERED: Haloperidol Lactate 5 MG/ML VIAL IVP STA (13:18)
[2021-05-01] MEDS: Budesonide/Formoterol 160/4.5 1 PUFF INH IH SCH ×3 (00:19→20:13)
[2021-05-01] MEDS: MethylPREDNISolone 40 MG/ML VIAL IVP SCH ×3 (00:29→16:22)
[2021-05-01] MEDS: D5% in Water 1,000 ML IVC SCH ×2 (00:30→13:43)
[2021-05-01] MEDS: Piperacillin/Tazobactam 3.375 GM in 0.9 % Sodium Chloride Mini Bag 100 ML IVPB SCH ×2 (02:28→11:25)
[2021-05-01 03:00] LABS: Hematocrit 23.1 % (37.5-50.1); Hemoglobin 7.3 g/dL (12.9-16.9); Immature Granulocytes % 0.6 % (0-4); Lymphocytes # 1.1 K/mcL (0.6-4.6); Lymphocytes % 8.3 %; Mean Corpuscular HGB Conc 31.6 g/dL (31.6-35.5); Mean Corpuscular Hemoglobin 31.7 pg (28.0-33.3); Mean Corpuscular Volume 100.4 fL (83.0-100.0); Mean Platelet Volume 10.2 fL (9.4-12.4); Monocytes # 0.5 K/mcL (0.0-1.3); Monocytes % 3.6 %; Neutrophils # 11.5 K/mcL (1.6-8.9); Platelet Count 107 K/mcL (140-400); Red Cell Distribution Width 18.6 % (11.5-14.5); Segmented Neutrophils % 87.5 %; White Blood Count 13.1 K/mcL (4.3-11.1)
[2021-05-01 03:08] LABS: INR 2.5; Prothrombin Time 28.5 Seconds (9.4-12.1)
[2021-05-01 03:20] LABS: Albumin 3.1 g/dL (3.5-5.7); Albumin/Globulin Ratio 0.9 (1.1-2.2); Bilirubin,Total 11.6 mg/dL (0.3-1.0); Calcium 9.7 mg/dL (8.6-10.3); Globulin 3.4 g/dL (2.4-3.5); Magnesium 1.7 mg/dL (1.6-2.6); Phosphorous 2.4 mg/dL (2.7-4.5); Potassium 3.3 mEq/L (3.5-5.1); Total Protein 6.5 g/dL (6.4-8.9)
[2021-05-01] MEDS ORDERED: Dextrose Gel 15 GM/37.5 ML TUBE PO PRN ×2 (08:25)
[2021-05-01] MEDS ORDERED: *HR* Dextrose 50 % in Water (Vial) 50 ML VIAL IVP PRN (08:25)
[2021-05-01] MEDS ORDERED: D5% in Water 1,000 ML IVC PRN (08:25)
[2021-05-01] MEDS: Lactulose Oral Soln 20 GM/30 ML UDC PO SCH (09:12)
[2021-05-01] MEDS: Pantoprazole 40 MG VIAL IVP SCH (09:14)
[2021-05-01] MEDS: Insulin LISPRO 300 UNITS/3 ML VIAL SUBQ SCH ×3 (09:23→16:23)
[2021-05-01] MEDS ORDERED: Potassium Phosphate 44 MEQ in 0.9 % Sodium Chloride 250 ML IVPB ONE (11:18)
[2021-05-01] MEDS ORDERED: Insulin LISPRO 300 UNITS/3 ML VIAL SUBQ SCH ×2 (11:30→21:00)
[2021-05-01] MEDS ORDERED: Potassium Chloride Elixir 20 MEQ/15 ML UDC PO ONE (11:34)
[2021-05-01] MEDS ORDERED: Albumin 25% 25gram/100mL 25 GM/100 ML IV.SOLN IVPB ONE (13:35)
[2021-05-01 20:21] VITALS: O2SAT 96
[2021-05-01 22:50] VITALS: BP 120/68; PULSE 80; TEMP 97.9
[2021-05-02] MEDS: MethylPREDNISolone 40 MG/ML VIAL IVP SCH (01:35)
[2021-05-02] MEDS ORDERED: Lactulose Oral Soln 20 GM/30 ML UDC PO SCH (09:00)
== END 2021-05-02 02:30 | disposition short-term general hospital (02) | DRG 871 ==
LOC: 2NENU → 2NNU 04-18 02:32 → SUATTDRO 04-18 04:24 → 2NNU 04-18 19:39 → ICNU 04-19 08:09 → 2ANU 04-25 15:53
PROVIDERS: ADMIT Internal Medicine; ATTEND Internal Medicine